=== PATIENT | male | born 1975 | race Caucasian/White ===

== ENCOUNTER 2016-05-19 13:35 | Emergency (ER) | payer SELFPAY ==
[~2016-05-19] VITALS: Wt 88.0 kg
[2016-05-19 13:38] VITALS: Wt 88.0 kg
[2016-05-19] MEDS ORDERED: morphine 4 MG/ML VIAL IV STA (14:45)
[2016-05-19] MEDS ORDERED: SOD CHLORIDE 0.9% 1,000 ML IV STA (14:45)
[2016-05-19] MEDS ORDERED: ONDANSETRON 4 MG INJ IV STA (14:45)
[2016-05-19 14:49] LABS: URINE BLOOD (Dip) POC Negative (NEGATIVE)
[2016-05-19 15:05] LABS: ADD SCAN DIFF NO; BASOPHILS % 0.8 % (0.0-2.0); EOSINOPHILS # 0.3 10^3/ul (0.0-0.5); EOSINOPHILS % 7.7 % (0.0-7.0); HEMATOCRIT 34.3 % (42.0-52.0); HEMOGLOBIN 10.7 g/dl (14.0-18.0); LYMPHOCYTES # 0.9 10^3/ul (0.8-2.9); LYMPHOCYTES % 24.2 % (15.0-51.0); MEAN CORPUSCULAR HEMOGLOBIN 25.4 pg (29.0-33.0); MEAN CORPUSCULAR HGB CONC 31.2 g/dl (32.0-37.0); MEAN CORPUSCULAR VOLUME 81.3 fl (82.0-101.0); MEAN PLATELET VOLUME 8.8 fl (7.4-10.4); MONOCYTE # 0.3 10^3/ul (0.3-0.9); MONOCYTES % 8.8 % (0.0-11.0); NEUTROPHIL # 2.3 10^3/ul (1.6-7.5); NEUTROPHILS % 58.5 % (39.0-77.0); PLATELET COUNT 368 10^3/UL (140-415); RED BLOOD COUNT 4.22 10^6/ul (4.70-6.10); RED CELL DISTRIBUTION WIDTH 16.3 % (11.5-14.5); WHITE BLOOD COUNT 3.9 10^3/ul (4.8-10.8)
[2016-05-19 15:27] LABS: ALBUMIN 3.5 g/dl (3.3-4.9)
[2016-05-19 15:28] LABS: POTASSIUM 3.8 mmol/L (3.5-5.1)
[2016-05-19 15:30] LABS: ALBUMIN/GLOBULIN RATIO 0.85; BILIRUBIN,INDIRECT 0.2 mg/dl (0-1.1); BILIRUBIN,TOTAL 0.2 mg/dl (0.2-1.3); CREATININE 0.99 mg/dl (0.61-1.24); TOTAL PROTEIN 7.6 g/dl (6.1-8.1)
[2016-05-19 15:31] LABS: CALCIUM 8.9 mg/dl (8.4-10.2)
[2016-05-19 15:39] LABS: ADD UMIC YES; URINE BILIRUBIN (Dip) NEGATIVE (NEGATIVE); URINE BLOOD (Dip) NEGATIVE (NEGATIVE); URINE COLOR YELLOW (YELLOW); URINE GLUCOSE (Dip) NEGATIVE (NEGATIVE); URINE KETONES (Dip) TRACE (NEGATIVE); URINE LEUKOCYTE ESTERASE (Dip) NEGATIVE (NEGATIVE); URINE NITRITE (Dip) NEGATIVE (NEGATIVE); URINE TOTAL PROTEIN (Dip) 1+ (NEGATIVE); URINE UROBILINOGEN (Dip) 1.0 E.U./dL (0.1-1.0)
[2016-05-19 16:09] LABS: URINE RBCS 0-2 /HPF (0)
[2016-05-19 16:10] LABS: BACTERIA,URINE MODERATE; MUCUS,URINE MANY; TRANSITIONAL EPI CELLS,URINE FEW
--- NOTE | 2016-05-19 16:55 | RADRPT ---
PROCEDURE: CT Abdomen and Pelvis without contrast. CLINICAL INDICATION: Abdominal pain. Family history of gastric cancer. Hematochezia. TECHNIQUE: CT scan of the abdomen and pelvis without contrast was performed on a multi-slice CT [facility] without intravenous contrast. Coronal and sagittal reformatted images were obtained from the axial source images. Images were reviewed on a high-resolution PACS workstation. One or more of the following does reduction techniques were used: Automated exposure control; adjustment of the mA an d/or kV according to patient size; use of the aorta of reconstruction technique. The total exam CTD I equals 18.42 mGy and the total exam DLP equals 1170.96 mGy-cm. COMPARISON: None available. FINDINGS: There is a small right pleural effusion with adjacent atelectasis. There is a trace left pleural ef fusion with adjacent atelectasis.. Heart size is normal, and there is no evidence of pericardial th ickening or effusion. There is increased soft tissue density adjacent to the pancreas which appears to be related to centr al mesenteric edema, however pancreatitis could also have this appearance. There are several enlarg ed gastrohepatic ligament lymph nodes. The liver, spleen, and pancreas are otherwise normal. There is enlargement of the left adrenal gland which appears to contain a nodule which is ill-define d and not well measured on this study. The right adrenal gland is normal.. The kidneys without michael l calculus or hydronephrosis. The aorta is of normal caliber. There are multiple shoddy retroperitoneal lymph nodes which are not enlarged by CT criteria. There is no definitive retroperitoneal lymph node enlargement. There is no evidence of large or small bowel obstruction. There are multiple prominent and enlarged mesenteric lymph nodes with increased soft tissue density in the central mesentery. While these fi ndings can be seen in mesenteric panniculitis. The constellation of other findings suggest a altern ative diagnosis. There are enlarged lymph nodes in the right lower quadrant. A normal appendix is not clearly identified, however there is no secondary evidence of acute appendicitis. There is mode rate thickening of the rectum and moderate to severe perirectal inflammatory change. There is small abdominal pelvic free fluid. There is no evidence of pneumoperitoneum. The urinary bladder is decompressed and collapsed. There is small pelvic free fluid. There are no definitively enlarged pelvic sidewall lymph nodes, though evaluation is limited due to lack of intra venous and oral contrast. There is increased soft tissue density in the subcutaneous fat of the ante rior lower pelvis and inguinal regions which has the appearance of a subcutaneous edema. The bones are intact. IMPRESSION: 1. Moderate rectal wall thickening and moderate to severe perirectal inflammatory changes. Finding s suggest proctitis. Multiple enlarged central mesenteric lymph nodes may be reactive in nature, ho wever require follow-up after resolution of acute symptomatology to exclude neoplastic etiology. 2. Increased soft tissue density in the peripancreatic fat appears to be related to central mesente henok edema of unknown etiology. Pancreatitis could have this appearance, and correlation with labora tory evaluation is recommended. 3. Enlarged gastrohepatic lymph nodes are nonspecific. Consider contrast enhanced CT scan for more detailed evaluation. Given family history of gastric cancer, endoscopy should be considered. 4. Enlarged left adrenal gland likely contains a nodule which is not delineated on this noncontrast CT scan. 5. Small abdominopelvic free fluid. 6. Small right and trace left pleural effusions with adjacent atelectasis. 7. Suggested subcutaneous edema in the anterior lower pelvis and inguinal regions. RPTAT: KK .Brian Bridges MD, MD Date Time Electronically viewed and signed by .Brian Bridges MD, on 05/19/2016 16:54 .B/
[2016-05-19] MEDS ORDERED: ACET500C5 PO (18:39)
[2016-05-19 18:59] VITALS: BP 115/71; PULSE 65; RESP 16; TEMP 98.9
--- NOTE | 2016-05-19 19:02 | ERD ---
ER Documentation Chief Complaint Date/Time DATE: 05/19/16 TIME: 18:59 Chief Complaint abd pain for the past few months. intermittent bloody stools. no n/v HPI 41 year old male with a past medical history of GERD presents to the ED complaining of lower bilateral abdominal pain that started 2 months ago. Reports that he has also had some slight intermittent bloody stools. Denies any fever, chills, chest pain, shortness of breath, dysuria, scrotal pain, hematuria, urgency, frequency. ROS All systems reviewed and are negative except as per history of present illness. Medications Home Meds Active Scripts Acetaminophen* (Tylophen*) 500 Mg Capsule, 1 CAP PO Q6H Y for PAIN AND OR ELEVATED TEMP, #20 CAP Prov:YOKASAT CASTILLO PA-C 05/19/16 PMhx/Soc History of Surgery: No Anesthesia Reaction: No Hx Neurological Disorder: No Hx Respiratory Disorders: No Hx Cardiac Disorders: No Hx Psychiatric Problems: No Hx Miscellaneous Medical Probl: No Hx Alcohol Use: No Hx Substance Use: No Hx Tobacco Use: No Smoking Status: Never smoker Physical Exam Vitals Vital Signs Date Time Temp Pulse Resp B/P Pulse Ox O2 Delivery O2 Flow Rate FiO2 05/19/16 13:38 99.1 102 21 120/86 99 Physical Exam Const: [id number]-[id number]-hqvepvhej, well-nourished. In no acute distress. Head: Atraumatic, normocephalic Eyes: Normal Conjunctiva without injection. No purulent discharge. ENT: Normal external ear, nose. Moist oropharynx without tonsillar exudates. Non -erythematous pharynx. Uvula midline. No drooling. No trismus. Neck: No cervical midline tenderness. Full range of motion. No meningismus. No cervical lymphadenopathy. No JVD. Resp: Clear to auscultation bilaterally. No wheezing, rhonchi, rales, or crackles. No accessory muscle use. No retractions. Cardio: Regular rate and rhythm. No murmurs, rubs or gallops. Abd: Soft, tenderness palpation of the right and left lower quadrant, non distended. Normal bowel sounds. No palpable masses. No rebound tenderness. No guarding. Negative McBurney's point. Negative psoas sign. Negative obturator sign. Skin: No petechiae or rashes Back: No midline tenderness. No CVA tenderness. Ext: No cyanosis, or edema. Neur: Awake and alert. Normal gait. Normal coordination. Psych: Normal Mood and Affect Result Diagram: 05/19/16 1453 05/19/16 1453 Results 24 hrs Laboratory Tests Test 05/19/16 14:48 05/19/16 14:53 05/19/16 15:03 05/19/16 15:20 Bedside Urine pH (LAB) 6.0 Bedside Urine Protein (LAB) 1+ Bedside Urine Glucose (UA) Negative Bedside Urine Ketones (LAB) Trace Bedside Urine Blood Negative Bedside Urine Nitrite (LAB) Negative Bedside Urine Leukocyte Esterase (L Negative White Blood Count 3.910^3/ul Red Blood Count 4.2210^6/ul Hemoglobin 10.7g/dl Hematocrit 34.3% Mean Corpuscular Volume 81.3fl Mean Corpuscular Hemoglobin 25.4pg Mean Corpuscular Hemoglobin Concent 31.2g/dl Red Cell Distribution Width 16.3% Platelet Count 15526^3/UL Mean Platelet Volume 8.8fl Neutrophils % 58.5% Lymphocytes % 24.2% Monocytes % 8.8% Eosinophils % 7.7% Basophils % 0.8% Nucleated Red Blood Cells % 0.0/100WBC Neutrophils # 2.310^3/ul Lymphocytes # 0.910^3/ul Monocytes # 0.310^3/ul Eosinophils # 0.310^3/ul Basophils # 0.010^3/ul Nucleated Red Blood Cells # 0.010^3/ul Sodium Level 142mmol/L Potassium Level 3.8mmol/L Chloride Level 104mmol/L Carbon Dioxide Level 28mmol/L Anion Gap 14 Blood Urea Nitrogen 16mg/dl Creatinine 0.99mg/dl Glucose Level 96mg/dl Calcium Level 8.9mg/dl Total Bilirubin 0.2mg/dl Direct Bilirubin 0.00mg/dl Indirect Bilirubin 0.2mg/dl Aspartate Amino Transf (AST/SGOT) 19IU/L Alanine Aminotransferase (ALT/SGPT) 16IU/L Alkaline Phosphatase 75IU/L Total Protein 7.6g/dl Albumin 3.5g/dl Globulin 4.10g/dl Albumin/Globulin Ratio 0.85 Lipase 75U/L Stool Occult Blood POSITIVE Urine Color YELLOW Urine Clarity HAZY Urine pH 6.0 Urine Specific Thatcher >=1.030 Urine Ketones TRACE Urine Nitrite NEGATIVE Urine Bilirubin NEGATIVE Urine Urobilinogen 1.0 E.U./dL Urine Leukocyte Esterase NEGATIVE Urine Microscopic RBC 0-2/HPF Urine Microscopic WBC 0-2/HPF Urine Transitional Epithelial Cells FEW Urine Calcium Oxalate Crystals MODERATE Urine Bacteria MODERATE Urine Mucus MANY Urine Hemoglobin NEGATIVE Urine Glucose NEGATIVE% Urine Total Protein 1+ Current Medications Medications (Trade) Dose Ordered Sig/Haley Route PRN Reason Start Time Stop Time Status Last Admin Dose Admin Sodium Chloride (NS) 1,000 ml @ 1,000 mls/hr Q1H STAT IV 05/19/16 14:45 05/19/16 15:44 DC 05/19/16 14:52 Morphine Sulfate (morphine) 4 mg ONCE STAT IV 05/19/16 14:45 05/19/16 14:47 DC 05/19/16 14:53 Ondansetron HCl (Zofran Inj) 4 mg ONCE STAT IV 05/19/16 14:45 05/19/16 14:47 DC 05/19/16 14:53 Procedures/MDM This is a 41-year-old male with a past medical history of GERD presents to the ED complaining of right and left lower quadrant abdominal pain. Patient is afebrile and nontoxic-appearing. Patient was further worked up with CBC, CMP, lipase, UA, CT of the abdomen and pelvis is without contrast. Patient's pain and symptoms have improved after treatment with 4 mg IV morphine , 4 mg IV Zofran. CBC: No leukocytosis. No e/o of systemic infection. No e/o anemia. CMP: No e/o severe acidosis, alkalosis, renal failure, diabetic ketoacidosis, liver disease Lipase within normal limits. Urine: No leukocyte esterase, no nitrites, no hematuria. PROCEDURE: CT Abdomen and Pelvis without contrast. CLINICAL INDICATION: Abdominal pain. Family history of gastric cancer. Hematochezia. TECHNIQUE: CT scan of the abdomen and pelvis without contrast was performed on a multi-slice CT scanner without intravenous contrast. Coronal and sagittal reformatted images were obtained from the axial source images. Images were reviewed on a high-resolution PACS workstation. One or more of the following does reduction techniques were used: Automated exposure control; adjustment of the mA and/or kV according to patient size; use of the aorta of reconstruction technique. The total exam CTDI equals 18.42 mGy and the total exam DLP equals 1170.96 mGy-cm. COMPARISON: None available. FINDINGS: There is a small right pleural effusion with adjacent atelectasis. There is a trace left pleural effusion with adjacent atelectasis.. Heart size is normal, and there is no evidence of pericardial thickening or effusion. There is increased soft tissue density adjacent to the pancreas which appears to be related to central mesenteric edema, however pancreatitis could also have this appearance. There are several enlarged gastrohepatic ligament lymph nodes. The liver, spleen, and pancreas are otherwise normal. There is enlargement of the left adrenal gland which appears to contain a nodule which is ill-defined and not well measured on this study. The right adrenal gland is normal.. The kidneys without renal calculus or hydronephrosis. The aorta is of normal caliber. There are multiple shoddy retroperitoneal lymph nodes which are not enlarged by CT criteria. There is no definitive retroperitoneal lymph node enlargement. There is no evidence of large or small bowel obstruction. There are multiple prominent and enlarged mesenteric lymph nodes with increased soft tissue density in the central mesentery. While these findings can be seen in mesenteric panniculitis. The constellation of other findings suggest a alternative diagnosis. There are enlarged lymph nodes in the right lower quadrant. A normal appendix is not clearly identified, however there is no secondary evidence of acute appendicitis. There is moderate thickening of the rectum and moderate to severe perirectal inflammatory change. There is small abdominal pelvic free fluid. There is no evidence of pneumoperitoneum. The urinary bladder is decompressed and collapsed. There is small pelvic free fluid. There are no definitively enlarged pelvic sidewall lymph nodes, though evaluation is limited due to lack of intravenous and oral contrast. There is increased soft tissue density in the subcutaneous fat of the anterior lower pelvis and inguinal regions which has the appearance of a subcutaneous edema. The bones are intact. IMPRESSION: 1. Moderate rectal wall thickening and moderate to severe perirectal inflammatory changes. Findings suggest proctitis. Multiple enlarged central mesenteric lymph nodes may be reactive in nature, however require follow-up after resolution of acute symptomatology to exclude neoplastic etiology. 2. Increased soft tissue density in the peripancreatic fat appears to be related to central mesenteric edema of unknown etiology. Pancreatitis could have this appearance, and correlation with laboratory evaluation is recommended. 3. Enlarged gastrohepatic lymph nodes are nonspecific. Consider contrast enhanced CT scan for more detailed evaluation. Given family history of gastric cancer, endoscopy should be considered. 4. Enlarged left adrenal gland likely contains a nodule which is not delineated on this noncontrast CT scan. 5. Small abdominopelvic free fluid. 6. Small right and trace left pleural effusions with adjacent atelectasis. 7. Suggested subcutaneous edema in the anterior lower pelvis and inguinal regions. Patient symptoms are likely due to proctitis. CT recommended for endoscopy due to patient's family history of gastric cancer. A differential diagnosis considered includes but is not limited to gastritis, GERD, peptic ulcer disease , cholecystitis, choledocholithiasis, cholangitis, pancreatitis, appendicitis, bowel obstruction, ileus, volvulus, nephrolithiasis, pyelonephritis, hepatitis, perforated viscus, diverticulitis, abdominal hernia, acute abdomen, mesenteric ischemia or other emergent conditions. Discharge medications: Tylenol Follow up with primary care physician in 1-2 days for referral to health physics technician. Instructed patient to return to the ED sooner for any worsening symptoms. Patient's questions were answered. Patient understood and agreed with discharge plan. Patient discharged stable. Departure Diagnosis: Primary Impression: Proctitis Condition: Stable Patient Instructions: Colonoscopy , Upper GI Endoscopy, What Is Ulcerative Colitis? Referrals: [facility] YOU HAVE RECEIVED A MEDICAL SCREENING EXAM AND THE RESULTS INDICATE THAT YOU DO NOT HAVE A CONDITION THAT REQUIRES URGENT TREATMENT IN THE EMERGENCY DEPARTMENT. FURTHER EVALUATION AND TREATMENT OF YOUR CONDITION CAN WAIT UNTIL YOU ARE SEEN IN YOUR DOCTORS OFFICE WITHIN THE NEXT 1-2 DAYS. IT IS YOUR RESPONSIBILITY TO MAKE AN APPOINTMENT FOR FOLOW-UP CARE. IF YOU HAVE A PRIMARY DOCTOR --you should call your primary doctor and schedule an appointment IF YOU DO NOT HAVE A PRIMARY DOCTOR YOU CAN CALL OUR PHYSICIAN REFERRAL HOTLINE AT IF YOU CAN NOT AFFORD TO SEE A PHYSICIAN YOU CAN CHOSE FROM THE FOLLOWING [facility] [id number] [facility] [address] [facility] [address] [facility] [address] [facility] [address] [facility] [address] [facility]. [facility] YOU HAVE RECEIVED A MEDICAL SCREENING EXAM AND THE RESULTS INDICATE THAT YOU DO NOT HAVE A CONDITION THAT REQUIRES URGENT TREATMENT IN THE EMERGENCY DEPARTMENT. FURTHER EVALUATION AND TREATMENT OF YOUR CONDITION CAN WAIT UNTIL YOU ARE SEEN IN YOUR DOCTORS OFFICE WITHIN THE NEXT 1-2 DAYS. IT IS YOUR RESPONSIBILITY TO MAKE AN APPOINTMENT FOR FOLOW-UP CARE. IF YOU HAVE A PRIMARY DOCTOR --you should call your primary doctor and schedule and appointment IF YOU DO NOT HAVE A PRIMARY DOCTOR YOU CAN CALL OUR PHYSICIAN REFERRAL HOTLINE AT . IF YOU CAN NOT AFFORD TO SEE A PHYSICIAN YOU CAN CHOSE FROM THE FOLLOWING [facility] INSTITUTIONS: [facility] [address] [place] [address] [facility] [address] [place] [address] [facility] + [facility] [address] [place] [address] [facility] U[facility]ENT [facility]/SPECIALTIES Additional Instructions: FOLLOW UP WITH YOUR PRIMARY CARE PHYSICIAN TOMORROW for a referral to health physics technician.Return to this facility if you are not improving as expected. YOKASTA CASTILLO PA-C May 19, 2016 19:02
== END 2016-05-19 19:01 | disposition home or self-care (01) ==
LOC: FTE 13:35
DX: K62.89 Other specified diseases of anus and rectum (principal)
CPT/HCPCS: 36415; 74176; 80053; 81001; 81003; 82270; 83690; 85025; 96374; 96375; 99285; J2270; J2405; J7030

== ENCOUNTER 2016-05-21 09:31 | Emergency (ER) | payer OTHER ==
[~2016-05-21] VITALS: Wt 73.0 kg
[~2016-05-21 09:31] MED LIST: ACET500C5 PO
[2016-05-21] MEDS ORDERED: morphine 4 MG/ML VIAL IV STA (10:46)
[2016-05-21] MEDS ORDERED: ONDANSETRON 4 MG INJ IV STA (10:46)
[2016-05-21 11:08] LABS: ADD SCAN DIFF NO
[2016-05-21 11:09] LABS: BASOPHILS % 0.5 % (0.0-2.0); EOSINOPHILS # 0.2 10^3/ul (0.0-0.5); EOSINOPHILS % 5.3 % (0.0-7.0); HEMATOCRIT 35.1 % (42.0-52.0); HEMOGLOBIN 11.1 g/dl (14.0-18.0); LYMPHOCYTES # 0.8 10^3/ul (0.8-2.9); LYMPHOCYTES % 19.4 % (15.0-51.0); MEAN CORPUSCULAR HEMOGLOBIN 25.8 pg (29.0-33.0); MEAN CORPUSCULAR HGB CONC 31.6 g/dl (32.0-37.0); MEAN CORPUSCULAR VOLUME 81.4 fl (82.0-101.0); MEAN PLATELET VOLUME 8.9 fl (7.4-10.4); MONOCYTE # 0.3 10^3/ul (0.3-0.9); MONOCYTES % 7.6 % (0.0-11.0); NEUTROPHIL # 2.9 10^3/ul (1.6-7.5); PLATELET COUNT 394 10^3/UL (140-415); RED BLOOD COUNT 4.31 10^6/ul (4.70-6.10); WHITE BLOOD COUNT 4.3 10^3/ul (4.8-10.8)
[2016-05-21 11:18] LABS: ADD UMIC YES; ALBUMIN 3.7 g/dl (3.3-4.9); URINE BILIRUBIN (Dip) 1+ (NEGATIVE); URINE BLOOD (Dip) NEGATIVE (NEGATIVE); URINE COLOR DK. YELLOW (YELLOW); URINE GLUCOSE (Dip) NEGATIVE (NEGATIVE); URINE KETONES (Dip) TRACE (NEGATIVE); URINE LEUKOCYTE ESTERASE (Dip) NEGATIVE (NEGATIVE); URINE NITRITE (Dip) NEGATIVE (NEGATIVE); URINE TOTAL PROTEIN (Dip) 1+ (NEGATIVE); URINE UROBILINOGEN (Dip) 1.0 E.U./dL (0.1-1.0)
[2016-05-21 11:19] LABS: POTASSIUM 3.6 mmol/L (3.5-5.1)
[2016-05-21 11:20] LABS: CREATININE 0.94 mg/dl (0.61-1.24)
[2016-05-21 11:21] LABS: ALBUMIN/GLOBULIN RATIO 0.88; BILIRUBIN,INDIRECT 0.3 mg/dl (0-1.1); BILIRUBIN,TOTAL 0.3 mg/dl (0.2-1.3); TOTAL PROTEIN 7.9 g/dl (6.1-8.1)
[2016-05-21 11:22] LABS: CALCIUM 8.9 mg/dl (8.4-10.2)
--- NOTE | 2016-05-21 11:34 | ERD ---
ER Documentation Chief Complaint Date/Time DATE: 05/21/16 TIME: 11:31 Chief Complaint LOWER ABD PAIN X 4 DAYS HPI 41-year-old male was seen and discharged about a week ago comes to the emergency department for rectal pain and abdominal pain. He was told that he likely had proctitis that was seen on the CT abdomen and pelvis and was told to follow-up outpatient with gastroenterology for colonoscopy. He states that at the time he did not have a primary care physician and he went to the wrong clinic given his insurance limitations. He has a history of hematochezia, also comes in with a family history of gastric cancer, his mother who was diagnosed in early to mid 50s. He has been complaining of diffuse abdominal pain, worsening rectal pain however in the last 2 weeks. He reports that he had diarrhea last night, about 7 times of blood in his stools and then followed by diarrhea once this morning without any blood. He denies any fevers, chills, nausea, vomiting, or hemoptysis or hematemesis. Patient states that he is homosexual, however has not had any anal intercourse. ROS All systems reviewed and are negative except as per history of present illness. Medications Home Meds Active Scripts Hydrocodone/Acetaminophen (Tiger 5-325 Tablet) 1 Each Tablet, 1 TAB PO Q6H Y for PAIN, #14 TAB Prov:SARAH MALONE PA-C 05/21/16 Metronidazole* (Flagyl*) 500 Mg Tablet, 500 MG PO TID for 10 Days, TAB Prov:SARAH MALONE PA-C 05/21/16 Ciprofloxacin Hcl* (Ciprofloxacin Hcl*) 500 Mg Tablet, 500 MG PO BID for 10 Days , TAB Prov:SARAH MALONE PA-C 05/21/16 Acetaminophen* (Tylophen*) 500 Mg Capsule, 1 CAP PO Q6H Y for PAIN AND OR ELEVATED TEMP, #20 CAP Prov:YOKASTA CASTILLO PA-C 05/19/16 Allergies Allergies: Coded Allergies: No Known Allergy (Unverified , 05/21/16) PMhx/Soc History of Surgery: No Anesthesia Reaction: No Hx Neurological Disorder: No Hx Respiratory Disorders: No Hx Cardiac Disorders: No Hx Psychiatric Problems: No Hx Miscellaneous Medical Probl: No Hx Alcohol Use: No Hx Substance Use: No Hx Tobacco Use: No Physical Exam Vitals Vital Signs Date Time Temp Pulse Resp B/P Pulse Ox O2 Delivery O2 Flow Rate FiO2 05/21/16 09:34 98.0 99 18 132/74 99 Physical Exam General: Well-developed, well-nourished. The patient appears in no acute distress. HEENT: Head is normocephalic, atraumatic. No scleral icterus. Pupils are equal , round, and reactive. Oral mucous membranes are moist. No pharyngeal erythema. Neck: Supple. Nontender. Lungs: Clear to auscultation. Normal air movement. Heart: Regular rate and rhythm. S1 and S2 are normal. No murmurs, gallops, or rubs. Abdomen: Soft, nontender, nondistended. Bowel sounds are normoactive. Extremities: No clubbing or cyanosis. Normal pulses. Moving extremities x 4. No weakness. Neurologic: Alert and oriented 3. No focal deficits. Skin: Normal turgor. No rash or lesions. Result Diagram: 05/21/16 1055 05/21/16 1055 Results 24 hrs Laboratory Tests Test 05/21/16 10:55 White Blood Count 4.310^3/ul Red Blood Count 4.3110^6/ul Hemoglobin 11.1g/dl Hematocrit 35.1% Mean Corpuscular Volume 81.4fl Mean Corpuscular Hemoglobin 25.8pg Mean Corpuscular Hemoglobin Concent 31.6g/dl Red Cell Distribution Width 16.0% Platelet Count 78132^3/UL Mean Platelet Volume 8.9fl Neutrophils % 67.0% Lymphocytes % 19.4% Monocytes % 7.6% Eosinophils % 5.3% Basophils % 0.5% Nucleated Red Blood Cells % 0.0/100WBC Neutrophils # 2.910^3/ul Lymphocytes # 0.810^3/ul Monocytes # 0.310^3/ul Eosinophils # 0.210^3/ul Basophils # 0.010^3/ul Nucleated Red Blood Cells # 0.010^3/ul Prothrombin Time 14.5Sec Prothrombin Time Ratio 1.1 INR International Normalized Ratio 1.13 Activated Partial Thromboplast Time 36.7Sec Urine Color DK. YELLOW Urine Clarity CLEAR Urine pH 6.0 Urine Specific [place] 1.025 Urine Ketones TRACE Urine Nitrite NEGATIVE Urine Bilirubin 1+ Urine Ictotest NEGATIVE Urine Urobilinogen 1.0 E.U./dL Urine Leukocyte Esterase NEGATIVE Urine Microscopic RBC 0-2/HPF Urine Microscopic WBC 0-2/HPF Urine Calcium Oxalate Crystals FEW Urine Bacteria FEW Urine Hemoglobin NEGATIVE Urine Glucose NEGATIVE% Urine Total Protein 1+ Sodium Level 141mmol/L Potassium Level 3.6mmol/L Chloride Level 102mmol/L Carbon Dioxide Level 27mmol/L Anion Gap 16 Blood Urea Nitrogen 18mg/dl Creatinine 0.94mg/dl Glucose Level 92mg/dl Calcium Level 8.9mg/dl Total Bilirubin 0.3mg/dl Direct Bilirubin 0.00mg/dl Indirect Bilirubin 0.3mg/dl Aspartate Amino Transf (AST/SGOT) 20IU/L Alanine Aminotransferase (ALT/SGPT) 17IU/L Alkaline Phosphatase 76IU/L Total Protein 7.9g/dl Albumin 3.7g/dl Globulin 4.20g/dl Albumin/Globulin Ratio 0.88 Lipase 65U/L Current Medications Medications (Trade) Dose Ordered Sig/Haley Route PRN Reason Start Time Stop Time Status Last Admin Dose Admin Morphine Sulfate (morphine) 4 mg ONCE STAT IV 05/21/16 10:46 05/21/16 10:47 DC 05/21/16 11:00 Ondansetron HCl (Zofran Inj) 4 mg ONCE STAT IV 05/21/16 10:46 05/21/16 10:47 DC 05/21/16 11:00 IV Flush 10 ml 10 ml STK-MED ONCE .ROUTE 05/21/16 11:56 05/21/16 11:57 DC 05/21/16 12:04 Sodium Chloride (NS) 100 ml @ ud STK-MED ONCE .ROUTE 05/21/16 11:56 05/21/16 11:57 DC 05/21/16 12:05 Iohexol 150 ml 150 ml STK-MED ONCE .ROUTE 05/21/16 11:56 05/21/16 11:57 DC 05/21/16 12:05 Ciprofloxacin/ Dextrose 200 ml @ 200 mls/hr ONCE ONCE IVPB 05/21/16 12:30 05/21/16 13:29 05/21/16 12:33 Metronidazole (Flagyl 500 Mg (Pmx)) 100 ml @ 100 mls/hr ONCE ONCE IVPB 05/21/16 12:30 05/21/16 13:29 PROCEDURE: CT Abdomen and Pelvis with contrast. CLINICAL INDICATION: Lower abdominal pain TECHNIQUE: CT of the abdomen and pelvis was performed on a multi-detector scanner following the uncomplicated IV administration of 90 cc of Omnipaque 300. Coronal and sagittal images were reformatted from the axial data set. One or more of the following dose reduction techniques were used: automated exposure control, adjustment of the mA and/or kV according to patient size, use of iterative reconstruction technique. CTDI = 14.36 mGy. DLP = 929.14 mGy- cm. COMPARISON: CT, 05/19/2016 FINDINGS: CT abdomen: There are moderate right and mild left pleural effusions, with associated bibasilar atelectasis. The heart size is normal, without pericardial effusion. Liver, gallbladder, biliary tree, pancreas, spleen, right adrenal gland and bilateral kidneys are unremarkable. There is no urolithiasis or obstructive uropathy. Indeterminate 1.8 cm left adrenal nodule is noted (3-51). The stomach is partially collapsed, but appears grossly unremarkable. There is no abdominal aortic aneurysm or dissection. There is no retroperitoneal lymphadenopathy. The alexi hepatis region is clear. CT pelvis: No bowel obstruction, free intraperitoneal air or abscess is identified. There is mild diffuse colorectal wall thickening and pericolonic edema, compatible with mild diffuse colitis/proctitis. The appendix is well visualized and normal. No diverticulosis or diverticulitis is identified. There is nonspecific prominence of mesenteric lymph nodes and small amount of peritoneal free fluid, possibly reactive. Urinary bladder is grossly unremarkable. No pelvic mass or lymphadenopathy is identified. The surrounding osseous structures are remarkable for degenerative spondylosis of the spine. No osteolytic or osteoblastic lesion is detected. IMPRESSION: 1. Findings suggestive of mild diffuse colitis/proctitis, similar in appearance to the prior CT. Prominent mesenteric lymph nodes and small amount of peritoneal free fluid are again noted, also grossly stable, possibly reactive. 2. There are moderate right and mild left pleural effusions, stable to slightly increased in size. 3. No bowel obstruction, perforation, or abscess formation is seen. 4. Indeterminate left adrenal nodule is again noted, grossly unchanged. Attention on follow-up is recommended. RPTAT: QQ .Elias Kam MD, MD Date Time Electronically viewed and signed by .Elias Kam MD, on 05/21/2016 12: 18 .R/ Procedures/MDM ED course: Patient had blood and urine obtained, IV line was established, he was given morphine 4 mg and Zofran [address] abdomen pelvis with IV contrast was obtained. A swab was taken of the rectum. Cipro, Flagyl was also given IV MDM: 41-year-old male presents to the emergency department with colitis and proctitis. Differentials include infectious versus viral versus autoimmune. Patient's blood work was also obtained, there is no leukocytosis, and anemia is noted however slightly improved from the previous week. Patient's history includes some blood in his stools, however he returns back to normal bowel movements today. He does not clinically appear to be dehydrated, the abdomen is soft and there are no surgical or peritoneal signs at this time. Given his lengthy duration of the symptoms, patient will be treated with Cipro and Flagyl. He was given a dose of Cipro and Flagyl IV, to be continued by mouth at home. He is to follow-up with a journeyman level acoustic analyst for colonoscopy after he is asymptomatic. He was given referral information to GI, and instructions on patient's after visit summary. Departure Diagnosis: Primary Impression: Proctitis Condition: SARAH Courtney PA-C May 21, 2016 11:34
[2016-05-21 11:38] LABS: BACTERIA,URINE FEW; URINE RBCS 0-2 /HPF (0)
[2016-05-21 11:41] LABS: PARTIAL THROMBOPLASTIN TIME 36.7 Sec (25.0-35.0)
[2016-05-21 11:50] LABS: INR 1.13; PROTIME 14.5 Sec (12.2-14.2); PT RATIO 1.1
[2016-05-21] MEDS ORDERED: IOHEXOL 300MG/ML 150 ML BTL ONE (11:56)
[2016-05-21] MEDS ORDERED: SOD CHLORIDE 0.9% 100 ML ONE (11:56)
[2016-05-21 11:59] LABS: ICTOTEST NEGATIVE (NEGATIVE)
--- NOTE | 2016-05-21 12:19 | RADRPT ---
PROCEDURE: CT Abdomen and Pelvis with contrast. CLINICAL INDICATION: Lower abdominal pain TECHNIQUE: CT of the abdomen and pelvis was performed on a multi-detector scanner following the un complicated IV administration of 90 cc of Omnipaque 300. Coronal and sagittal images were reformatt ed from the axial data set. One or more of the following dose reduction techniques were used: autom ated exposure control, adjustment of the mA and/or kV according to patient size, use of iterative r econstruction technique. CTDI = 14.36 mGy. DLP = 929.14 mGy-cm. COMPARISON: CT, 05/19/2016 FINDINGS: CT abdomen: There are moderate right and mild left pleural effusions, with associated bibasilar atelectasis. Th e heart size is normal, without pericardial effusion. Liver, gallbladder, biliary tree, pancreas, s pleen, right adrenal gland and bilateral kidneys are unremarkable. There is no urolithiasis or obst ructive uropathy. Indeterminate 1.8 cm left adrenal nodule is noted (3-51). The stomach is partial ly collapsed, but appears grossly unremarkable. There is no abdominal aortic aneurysm or dissection. There is no retroperitoneal lymphadenopathy. The alexi hepatis region is clear. CT pelvis: No bowel obstruction, free intraperitoneal air or abscess is identified. There is mild diffuse colo rectal wall thickening and pericolonic edema, compatible with mild diffuse colitis/proctitis. The a ppendix is well visualized and normal. No diverticulosis or diverticulitis is identified. There is nonspecific prominence of mesenteric lymph nodes and small amount of peritoneal free fluid, possibl y reactive. Urinary bladder is grossly unremarkable. No pelvic mass or lymphadenopathy is identifi ed. The surrounding osseous structures are remarkable for degenerative spondylosis of the spine. No ost eolytic or osteoblastic lesion is detected. IMPRESSION: 1. Findings suggestive of mild diffuse colitis/proctitis, similar in appearance to the prior CT. P rominent mesenteric lymph nodes and small amount of peritoneal free fluid are again noted, also emanuel sly stable, possibly reactive. 2. There are moderate right and mild left pleural effusions, stable to slightly increased in size. 3. No bowel obstruction, perforation, or abscess formation is seen. 4. Indeterminate left adrenal nodule is again noted, grossly unchanged. Attention on follow-up is recommended. RPTAT: QQ .Elias Kam MD, MD Date Time Electronically viewed and signed by .Elias Kam MD, MD on 05/21/2016 12:18 .R/
[2016-05-21] MEDS ORDERED: CIPROFLOXACIN 400MG/D5W 200 ML IVPB ONE (12:30)
[2016-05-21] MEDS: metroNIDAZOLE 500 MG/NS (PMX) 100 ML IVPB ONE ×2 (12:30→13:30)
[2016-05-21] MEDS ORDERED: METR500T PO (13:03)
[2016-05-21] MEDS ORDERED: HYDR-906 PO (13:03)
[2016-05-21] MEDS ORDERED: CIPR500T4 PO (13:03)
[2016-05-21 14:40] VITALS: BP 136/72; PULSE 76; RESP 18; TEMP 98
== END 2016-05-21 14:40 | disposition home or self-care (01) ==
LOC: FTE 09:31
DX: K62.89 Other specified diseases of anus and rectum (principal)
CPT/HCPCS: 36415; 74177; 80053; 81001; 83690; 85025; 85610; 85730; 87070; 96365; 96367; 96375; J0744; J2270; J2405; Q9967; Z7502; Z7610; 81003

== ENCOUNTER 2016-06-05 19:46 | Emergency (ER) | payer OTHER ==
[~2016-06-05] VITALS: Ht 177.8 cm; Wt 93.5 kg
[~2016-06-05 19:46] MED LIST changes: +CIPR500T4 PO; +HYDR-906 PO; +METR500T PO
[2016-06-05 19:52] VITALS: Ht 177.8 cm; Wt 93.5 kg
[2016-06-05] MEDS ORDERED: SOD CHLORIDE 0.9% 500 ML IV STA (20:33)
[2016-06-05 21:04] LABS: ADD SCAN DIFF NO
[2016-06-05 21:11] LABS: BASOPHILS % 0.5 % (0.0-2.0); EOSINOPHILS # 0.3 10^3/ul (0.0-0.5); EOSINOPHILS % 7.5 % (0.0-7.0); HEMATOCRIT 32.3 % (42.0-52.0); HEMOGLOBIN 10.3 g/dl (14.0-18.0); LYMPHOCYTES % 23.3 % (15.0-51.0); MEAN CORPUSCULAR HEMOGLOBIN 26.1 pg (29.0-33.0); MEAN CORPUSCULAR HGB CONC 31.9 g/dl (32.0-37.0); MEAN CORPUSCULAR VOLUME 81.8 fl (82.0-101.0); MEAN PLATELET VOLUME 8.9 fl (7.4-10.4); MONOCYTE # 0.4 10^3/ul (0.3-0.9); MONOCYTES % 8.9 % (0.0-11.0); NEUTROPHIL # 2.5 10^3/ul (1.6-7.5); NEUTROPHILS % 59.1 % (39.0-77.0); PLATELET COUNT 422 10^3/UL (140-415); RED BLOOD COUNT 3.95 10^6/ul (4.70-6.10); RED CELL DISTRIBUTION WIDTH 16.6 % (11.5-14.5); WHITE BLOOD COUNT 4.2 10^3/ul (4.8-10.8)
[2016-06-05 21:27] LABS: ALBUMIN 3.3 g/dl (3.3-4.9)
[2016-06-05 21:28] LABS: POTASSIUM 3.5 mmol/L (3.5-5.1)
[2016-06-05 21:29] LABS: CREATININE 0.93 mg/dl (0.61-1.24)
[2016-06-05 21:30] LABS: ALBUMIN/GLOBULIN RATIO 0.86; BILIRUBIN,INDIRECT 0.2 mg/dl (0-1.1); BILIRUBIN,TOTAL 0.2 mg/dl (0.2-1.3); CALCIUM 8.7 mg/dl (8.4-10.2); TOTAL PROTEIN 7.1 g/dl (6.1-8.1)
[2016-06-05 21:34] LABS: ADD UMIC YES; URINE BILIRUBIN (Dip) NEGATIVE (NEGATIVE); URINE BLOOD (Dip) NEGATIVE (NEGATIVE); URINE COLOR YELLOW (YELLOW); URINE GLUCOSE (Dip) NEGATIVE (NEGATIVE); URINE KETONES (Dip) NEGATIVE (NEGATIVE); URINE LEUKOCYTE ESTERASE (Dip) NEGATIVE (NEGATIVE); URINE NITRITE (Dip) NEGATIVE (NEGATIVE); URINE TOTAL PROTEIN (Dip) 1+ (NEGATIVE); URINE UROBILINOGEN (Dip) 1.0 E.U./dL (0.1-1.0)
[2016-06-05 21:45] LABS: MUCUS,URINE FEW; SQUAMOUS EPITHELIAL CELL,UR RARE; URINE RBCS NONE SEEN /HPF (0)
[2016-06-05] MEDS ORDERED: IOHEXOL 300MG/ML 30 ML BTL ONE (22:07)
[2016-06-05] MEDS ORDERED: SOD CHLORIDE 0.9% 100 ML ONE (22:07)
--- NOTE | 2016-06-05 22:43 | RADRPT ---
PROCEDURE: CT Abdomen and Pelvis with Contrast CLINICAL INDICATION: Abdominal pain TECHNIQUE: Transaxial images were obtained through the abdomen and pelvis on a multi-slice scanner following the intravenous administration of iodinated contrast. No oral contrast had previously be en given. Sagittal and coronal re-formations were subsequently reconstructed. One or more of the following dose reduction techniques were used: - Automated exposure control. - Adjustment of the mA and/or kV according to patient size. - Use of iterative reconstruction technique. Radiation dose: CTDIvol = 16.39 mGy; DLP = 1072.59 mGy-cm. COMPARISON: 05/21/2016 FINDINGS: Lung bases: Increasing water density gravitating bilateral pleural fluid accumulations are evident w hich are now [id number] in greater on the right than the left. Subsegmental atelectasis is s een within the lower lobes. A 1.5 cm epicardial node is again evident. Liver: The liver remains mildly enlarged with no focal lesion identified. The hepatic and portal ve ins are patent. Gallbladder: The gallbladder remains mildly distended but the wall is not thickened and no radiopaqu e stone is identified. Bile ducts: The common bile duct measures 7 mm to the superior head of the pancreas. Pancreas: The pancreatic duct is mildly dilated to 3 mm in maximal diameter. No pancreatic mass or inflammation is evident. Spleen: The spleen is borderline enlarged. Adrenals: A 2.5 cm left adrenal nodule is evident. The right adrenal gland appears normal. Kidneys, ureters and bladder: The kidneys enhance normally and are normal in size and there is no ma ss, pathological calcification, or hydronephrosis evident. There is no perinephric stranding. The ur eters are normal in caliber and no ureteroliths are identified. The bladder lumen is of increased de nsity measuring 28 HU and the bladder wall appears thickened.. Reproductive organs: The prostate is not enlarged. Stomach, bowel, and mesentery: There is again considerable concentric thickening of the rectal wall. Substantial stool is seen within the colon. There are no findings to suggest bowel obstruction. T he stomach appears unremarkable. Appendix: The appendix is not discretely identified. Peritoneum: There is a small amount of free intraperitoneal fluid seen in the right paracolic gutter and to a much lesser extent within the left paracolic gutter. No free air is identified. Aorta: Normal in caliber with no aneurysmal dilatation. IVC: Unremarkable. Lymph nodes: A few mesenteric nodes are up to 1.1 cm in maximal diameter. Osseous structures: Mild degenerative endplate changes are seen to the spine. Soft tissues: There is a increased stranding within the subcutaneous fat particularly within the an terior pelvis compatible with edema/inflammation. IMPRESSION: 1. Persistent concentric thickening of the rectal wall with thickening of the surrounding tissue pl anes compatible with proctitis. Substantial stool is seen to the colon but there is no evidence of bowel obstruction. 2. There is increased density now seen within the bladder lumen and there is thickening of the blad lazaro wall compatible with cystitis. 3. Mesenteric nodes are again evident up to 1.1 cm in maximal diameter. 4. A left adrenal mass measuring 2.5 cm in diameter is again evident. 5. There is again a small amount of free fluid primarily seen within the pericolic gutters, greater on the right than the left, unchanged. 6. Increasing [id number] gravitating bilateral water pleural fluid accumulations are evident along with persistent subsegmental atelectasis involving the lower lobes. A 1.5 cm epicardial node is again evident. 7. Distended gallbladder with no radiopaque stone or gallbladder wall thickening evident. The comm on bile duct is now mildly dilated to 7 mm to the head of the pancreas and the pancreatic duct remai ns mildly dilated at 3 mm but no pancreatic mass or inflammation is identified. 8. The liver remains mildly enlarged with no focal lesion evident. 9. Stranding is again seen within the deep intraperitoneal fat as well as within the subcutaneous f at most evident within the anterior pelvis and along the iliac vessels compatible with edema/inflamm ation. Physician Rossy Date Time Electronically viewed and signed by Physician Rossy on 06/05/2016 22:43 /
--- NOTE | 2016-06-05 23:24 | ERA ---
ER Documentation Chief Complaint Date/Time DATE: 06/05/16 TIME: 23:21 Chief Complaint abd pain with penile swelling HPI This is a 41 year old male who is homosexual with history of gastritis presenting to the emergency department with a chief complaint of penile swelling for the past few hours. This is patient's third visit in the past few weeks. Patient states he has generalized abdominal pain and intermittent hematochezia for past couple months, with pelvic swelling past two weeks. Patient last visit was on May 21 and he was diagnosed with colitis and proctitis by CT in which they were giving him Flagyl and Cipro to treat empirically, however patient states he has not been compliant, he has been taking it on/off past week. 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 Patient states that his penis was swollen 3 times as large house and by the time he got to the examination room he states that it has decreased a little bit. He denies any discharge, tenderness, redness. Patient denies any fevers. Patient states that he has taken [place], Flagyl and Cipro today. Patient states that he had STD testing done about a couple months ago in which syphilis was positive and he was treated for 3 weeks, patient states that the doctor had forgot to check off the HIV, the results are still pending ROS All systems reviewed and are negative except as per history of present illness. Medications Home Meds Active Scripts Hydrocodone/Acetaminophen ([place] 5-325 Tablet) 1 Each Tablet, 1 TAB PO Q6H Y for PAIN, #14 TAB Prov:SARAH MALONE PA-C 05/21/16 Metronidazole* (Flagyl*) 500 Mg Tablet, 500 MG PO TID for 10 Days, TAB Prov:SARAH MALONE PA-C 05/21/16 Ciprofloxacin Hcl* (Ciprofloxacin Hcl*) 500 Mg Tablet, 500 MG PO BID for 10 Days , TAB Prov:SARAH MALONE PA-C 05/21/16 Acetaminophen* (Tylophen*) 500 Mg Capsule, 1 CAP PO Q6H Y for PAIN AND OR ELEVATED TEMP, #20 CAP Prov:YOKASTA CASTILLO PA-C 05/19/16 Allergies Allergies: Coded Allergies: No Known Allergy (Unverified , 05/21/16) PMhx/Soc Medical and Surgical Hx: pt denies Surgical Hx History of Surgery: No Anesthesia Reaction: No Hx Neurological Disorder: No Hx Respiratory Disorders: No Hx Cardiac Disorders: No Hx Psychiatric Problems: No Hx Miscellaneous Medical Probl: No Hx Alcohol Use: No Hx Substance Use: No Hx Tobacco Use: No Smoking Status: Never smoker Physical Exam Vitals Vital Signs Date Time Temp Pulse Resp B/P Pulse Ox O2 Delivery O2 Flow Rate FiO2 06/05/16 23:30 98.8 108 17 109/89 100 Room Air 06/05/16 19:52 99.7 122 16 134/84 100 Physical Exam GENERAL: well-developed/well-nourished, in no apparent distress, non-toxic appearing HENT: NC/AT, moist mucous membranes EYES: Conjunctiva normal NECK: Supple PULM: CTA bilaterally, no rales, rhonchi, or wheezing heard CV: Normal S1S2, RRR, good capillary refill GI: Soft, obese, tender to palpation in all quadrants No gross peritonitis, no bruits Negative Rovsing, negative Devi, negative McBurney's point, Negative CVAT : Pelvic swelling, penile swelling, no discharge or erythema or induration BACK: No masses EXT: No clubbing, cyanosis, or edema NEURO: Alert and Orientated SKIN: Hyperpigmentation along patient's groin PSYCH: Normal mood and mentation Result Diagram: 06/05/16 2100 06/05/16 2100 Results 24 hrs Laboratory Tests Test 06/05/16 21:00 White Blood Count 4.210^3/ul Red Blood Count 3.9510^6/ul Hemoglobin 10.3g/dl Hematocrit 32.3% Mean Corpuscular Volume 81.8fl Mean Corpuscular Hemoglobin 26.1pg Mean Corpuscular Hemoglobin Concent 31.9g/dl Red Cell Distribution Width 16.6% Platelet Count 50725^3/UL Mean Platelet Volume 8.9fl Neutrophils % 59.1% Lymphocytes % 23.3% Monocytes % 8.9% Eosinophils % 7.5% Basophils % 0.5% Nucleated Red Blood Cells % 0.0/100WBC Neutrophils # 2.510^3/ul Lymphocytes # 1.010^3/ul Monocytes # 0.410^3/ul Eosinophils # 0.310^3/ul Basophils # 0.010^3/ul Nucleated Red Blood Cells # 0.010^3/ul Urine Color YELLOW Urine Clarity CLEAR Urine pH 5.5 Urine Specific [place] >=1.030 Urine Ketones NEGATIVE Urine Nitrite NEGATIVE Urine Bilirubin NEGATIVE Urine Urobilinogen 1.0 E.U./dL Urine Leukocyte Esterase NEGATIVE Urine Microscopic RBC NONE SEEN/HPF Urine Microscopic WBC NONE SEEN/HPF Urine Squamous Epithelial Cells RARE Urine Mucus FEW Urine Hemoglobin NEGATIVE Urine Glucose NEGATIVE% Urine Total Protein 1+ Sodium Level 139mmol/L Potassium Level 3.5mmol/L Chloride Level 104mmol/L Carbon Dioxide Level 25mmol/L Anion Gap 14 Blood Urea Nitrogen 24mg/dl Creatinine 0.93mg/dl Glucose Level 100mg/dl Calcium Level 8.7mg/dl Total Bilirubin 0.2mg/dl Direct Bilirubin 0.00mg/dl Indirect Bilirubin 0.2mg/dl Aspartate Amino Transf (AST/SGOT) 22IU/L Alanine Aminotransferase (ALT/SGPT) 18IU/L Alkaline Phosphatase 76IU/L Total Protein 7.1g/dl Albumin 3.3g/dl Globulin 3.80g/dl Albumin/Globulin Ratio 0.86 Lipase 32U/L Current Medications Medications (Trade) Dose Ordered Sig/Haley Route PRN Reason Start Time Stop Time Status Last Admin Dose Admin Sodium Chloride (NS) 500 ml @ 500 mls/hr Q1H STAT IV 06/05/16 20:33 06/05/16 21:32 DC 06/05/16 20:54 IV Flush 10 ml 10 ml STK-MED ONCE .ROUTE 06/05/16 22:07 06/05/16 22:08 DC 06/05/16 22:16 Sodium Chloride (NS) 100 ml @ ud STK-MED ONCE .ROUTE 06/05/16 22:07 06/05/16 22:08 DC 06/05/16 22:16 Iohexol (Omnipaque 300mg/ ml) 30 ml STK-MED ONCE .ROUTE 06/05/16 22:07 06/05/16 22:08 DC 06/05/16 22:16 Ondansetron HCl (Zofran Inj) 4 mg BRIDGE ORDER PRN IV NAUSEA AND/OR VOMITING 06/05/16 23:30 06/06/16 23:29 06/05/16 23:35 Acetaminophen (Tylenol Tab) 650 mg ER BRIDGE PRN PO MILD PAIN/FEVER 06/05/16 23:30 06/06/16 23:29 Hydromorphone HCl (Dilaudid) 0.5 mg ONCE STAT IV 06/05/16 23:27 06/05/16 23:28 DC 06/05/16 23:35 Procedures/MDM This is a 41 year old male who is homosexual with colitis and proctitis presents here today with a new complaint of penile swelling or the past few hours. Patient has been seen at this facility 2 times before on May 19 and May 21 for a generalized abdominal pain for 2 months, intermittent hematochezia , pelvic swelling and other nonspecific skin changes. Patient is a primary care physician and a GI specialist Dr.Yeong Agee that he is being followed up on, patient states that the colonoscopy is awaiting. IV access established. Patient was given 1 L fluids, morphine, Zofran. Lab work was drawn. CBC did not show any evidence of leukocytosis. Patient had a lower white count and hemoglobin. CMP did not show any evidence of renal, liver, or electrolyte abnormalities. Lipase was normal. UA did not show any evidence of hemoglobin or urinary tract infection. I have consulted my supervising physician who has evaluated patient and suggested CT abd and pelvis with contrast. CT abd and pelvis with contrast: 1. Persistent concentric thickening of the rectal wall with thickening of the surrounding tissue planes compatible with proctitis. Substantial stool is seen to the colon but there is no evidence of bowel obstruction. 2. There is increased density now seen within the bladder lumen and there is thickening of the bladder wall compatible with cystitis. 3. Mesenteric nodes are again evident up to 1.1 cm in maximal diameter. 4. A left adrenal mass measuring 2.5 cm in diameter is again evident. 5. There is again a small amount of free fluid primarily seen within the pericolic gutters, greater on the right than the left, unchanged. 6. Increasing [id number] gravitating bilateral water pleural fluid accumulations are evident along with persistent subsegmental atelectasis involving the lower lobes. A 1.5 cm epicardial node is again evident. 7. Distended gallbladder with no radiopaque stone or gallbladder wall thickening evident. The common bile duct is now mildly dilated to 7 mm to the head of the pancreas and the pancreatic duct remains mildly dilated at 3 mm but no pancreatic mass or inflammation is identified. 8. The liver remains mildly enlarged with no focal lesion evident. 9. Stranding is again seen within the deep intraperitoneal fat as well as within the subcutaneous fat most evident within the anterior pelvis and along the iliac vessels compatible with edema/inflammation. It appears that patient is having worsening pleural effusions, continuing to have proctitis, colitis with lymphadenopathy. I consulted my supervising physician Dr. Simpson and we believe that is best that patient gets admitted for further evaluation and management. Since patient is capitated at [facility], I have consulted as attending physician who accepted the patient. Patient is stable for transfer to [facility] at [facility] Departure Diagnosis: Primary Impression: Proctitis Additional Impression: Pleural effusion Condition: Fair ALICE ARANDA PA-C Jun 05, 2016 23:24
[2016-06-05] MEDS ORDERED: HYDROmorphONE 1 MG/ML SYG IV STA (23:27)
[2016-06-05 23:30] VITALS: BP 109/89; PULSE 108; RESP 17; TEMP 98.8
[2016-06-05] MEDS ORDERED: ACETAMINOPHEN 325 MG TAB PO PRN (23:30)
[2016-06-05] MEDS ORDERED: ONDANSETRON 4 MG INJ IV PRN (23:30)
[2016-06-05] MEDS ORDERED: SOD CHLORIDE 0.9% 1,000 ML IV STA (23:51)
== END 2016-06-06 01:44 | disposition short-term general hospital (02) ==
LOC: FTE 19:46 → E/R 06-06 01:44
DX: K62.89 Other specified diseases of anus and rectum (principal); J90 Pleural effusion, not elsewhere classified
CPT/HCPCS: 74177; 80053; 81001; 83690; 85025; J1170; J2405; J7030; J7040; Q9967; Z7610; 36415; 81003; 96374; 96375